=== PATIENT | female | born 1940 | race Caucasian/White ===

== ENCOUNTER 2019-06-01 09:14 | Inpatient (IN) | payer MEDICARE ==
--- NOTE | 2019-06-01 09:30 | CT ---
Exam: Head CT without contrast HISTORY: Left-sided weakness. Level 2 stroke. Last seen normal at 1:00 AM. COMPARISON: 08/27/2015 FINDINGS: Hemorrhage: No intraparenchymal hemorrhage or extra-axial hematoma. Brain parenchyma: Cortical portillo-white matter differentiation is preserved. No mass effect or midline shift. Basilar cisterns are patent.Remote lacunar infarcts involving the left and right deep portillo matter structures. There are chronic small vessel ischemic changes of the white matter. Age-appropria te atrophy. Ventricular system: Ventricles and sulci are patent and symmetric. Calvarium: Intact. Sinuses and mastoid air cells: Adequate aeration. IMPRESSION: 1. No acute intracranial process. 2. Results of study discussed with Dr. Bermudez 06/01/2019 9:27 AM Code CR
[2019-06-01 09:35] LABS: #Eosinphils 0.1 thou/uL (0.0-0.7); #Monocytes 0.6 thou/uL (0.11-0.59); #Neutrophils 5.7 thou/uL (1.40-6.50); %Basophils 0.6 % (0.0-1.0); %Eosinophils 1.5 % (0.0-10.0); %Monocytes 7.3 % (0.0-10.0); %Neutrophils 66.7 % (42.0-75.0); Hemoglobin 12.4 g/dL (12.0-16.0); Mean Corpuscular Hemoglobin 30.1 pg (27.0-31.0); Mean Corpuscular Volume 88.7 fL (78.0-98.0); Mean Platelet Volume 6.5 fL (7.4-10.4); Platelet Count 307 thou/uL (130-400); RBC Distribution Width 12.8 % (11.5-14.5); Red Blood Cell (RBC) Count 4.13 mill/uL (4.20-5.40); White Blood Cell (WBC) Count 8.5 thou/uL (4.8-10.8)
[2019-06-01] MEDS ORDERED: hydrALAZINE 20 MG/ML VIAL ONE (09:44)
[2019-06-01 09:50] LABS: ALT (SGPT) 8 U/L (8-55); AST (SGOT) 10 U/L (5-34); Albumin 3.3 g/dL (3.4-4.8); Alkaline Phosphatase 80 U/L (40-110); Anion Gap 12 mmol/L (10-20); BUN (Urea Nitrogen) 10 mg/dL (9.8-20.1); Bilirubin, Total 0.2 mg/dL (0.2-1.2); Calc. Creatinine Clearance 0 mL/min (70-130); Calcium 9.4 mg/dL (7.8-10.44); Carbon Dioxide 29 mmol/L (23-31); Chloride 104 mmol/L (98-107); Estimated GFR-MDRD 59; Globulin 3.4 g/dL (2.4-3.5); Glucose 97 mg/dL (83-110); Protein, Total 6.7 g/dL (6.0-8.3); Sodium 141 mmol/L (136-145)
--- NOTE | 2019-06-01 09:51 | CT ---
EXAM: CT ANGIOGRAM OF THE HEAD AND NECK: INDICATION: Stroke. COMPARISON: None. TECHNIQUE: CT angiogram of the head and neck are performed in the axial plane. Three-dimensional reformatted terence ges are submitted for interpretation. FINDINGS: CTA OF THE HEAD WITH AND WITHOUT CONTRAST: POSTCONTRAST CT OF BRAIN: Pathologic enhancement: No pathologic enhancement the brain. POSTCONTRAST SOFT TISSUE NECK CT: Sinuses: Adequate aeration of the visualized paranasal sinuses and mastoid air cells. Orbits: Bilateral ocular lenses are appropriately located. Both globes are intact. Retrobulbar fat is preserved. Symmetric attenuation the optic nerves and ocular rectus muscles. Salivary glands:Symmetric attenuation of the parotid and symmetrical glands . Thyroid gland: Appropriate attenuation. Lymph nodes: No evidence of lymphadenopathy by size criteria. Paraspinal muscles: Symmetric attenuation of the sternocleidomastoid muscles. Appropriate attenuation of the paraspinal muscles. Cervical spine:Vertebral body height is maintained. No fracture. No significant central canal stenosi s or significant neural foraminal narrowing. Limited evaluation by technique. Upper mediastinum and lung apices: Mild emphysematous changes in the visualized lung apices. Question able right hilar lymphadenopathy, incompletely evaluated. Additional nonspecific mediastinal lymph nodes are noted. CTA OF THE NECK WITH CONTRAST: Aorta: Atherosclerosis of a nonaneurysmal aorta. There is mild narrowing of the proximal descending t horacic aorta due to calcified and noncalcified plaque. Right carotid artery: Right carotid artery origin has mild narrowing due to noncalcified plaque. The common carotid artery and carotid bifurcation have mild narrowing due to atherosclerotic disease. No significant stenosis based upon NASCET criteria with regards to the internal carotid artery. Left carotid: Mild narrowing of the left carotid artery origin due to atherosclerotic disease. Mild n arrowing of the proximal left common carotid due to heart disease. There is calcified and noncalcified plaque involving the mid left common carotid artery. There is associated moderate (54%) stenosis. Atherosclerotic disease is noted in the distal common carotid artery, carotid bifurcation and internal carotid artery. There is a left carotid artery stent which is patent. The mid to distal left internal carotid artery have appropriate enhancement and luminal diameter. No significant stenosis based upon NASCET criteria. Subclavian arteries:Patent and symmetric. Vertebral arteries:Mild atherosclerosis at the origin of the left vertebral artery. Vertebral arterie s are patent throughout their course in the neck. Short segment moderate stenosis involving the right vertebral body at the C4-C5 level Left vertebral artery is slightly more dominant. CTA OF THE BRAIN: Intracranial internal carotid arteries:Atherosclerosis involving both cavernous sinus segments. No si gnificant stenosis. Anterior circulation: Symmetric enhancement and luminal diameter of the A1 and M1 segments. Proximal A2 segments and proximal MCA branches have appropriate enhancement and luminal diameter. Intracranial vertebral arteries: Appropriate enhancement and luminal diameter. Bilateral PICA artery origins have appropriate enhancement and luminal diameter. Posterior circulation: Both vertebral arteries supply a normal caliber basilar artery. Bilateral P1 s egments have appropriate enhancement and luminal diameter. IMPRESSION: 1. No evidence of significant stenosis at the level of [place]. 2. Patent right internal carotid artery vascular stent. 3. Moderate stenosis involving the left common carotid artery. 4. No evidence of hemodynamically significant stenosis involving the right cervical carotid artery. 5. Results of the study discussed with Dr. Bermudez 06/01/2019 at 9:50 AM. Code CR Transcribed Date/Time: 06/01/2019 10:05 AM
--- NOTE | 2019-06-01 10:21 | RAD ---
Exam: Chest one view HISTORY:Cough. Comparison: 09/23/2017, 03/28/2019 FINDINGS: Cardiac silhouette:Normal cardiac silhouette. There are sternotomy wires Aorta: Atherosclerosis Pulmonary vessels: Normal Costophrenic angles: Clear LUNGS: No masses or consolidation. Pneumothorax: None Osseous abnormalities: None IMPRESSION: 1. No acute cardiopulmonary process. 2. Atherosclerosis.
[2019-06-01] MEDS ORDERED: Aspirin Chewable 81 MG TAB ONE ×2 (10:30)
[2019-06-01 10:52] LABS: Bacteria/HPF None Seen HPF (None Seen); Bilirubin Negative (Negative); Blood, Urine Negative (Negative); Clarity Clear (Clear); Glucose, Urine (Dipstick) Normal (Negative); Leukocyte Negative Leu/uL (Negative); Nitrite Negative (Negative); Protein, Urine (Dipstick) 70 mg/dL (Neg-Trace); RBC/HPF 0-3 HPF (0-3); Urobilinogen Normal mg/dL (Less than 2)
--- NOTE | 2019-06-01 10:57 | PDOC.HHP ---
Hospitalist HPI - History of Present Illness Left sided weakness History of Present Illness: This a 78 year old woman with a significant cardiac history, 2 strokes in the past and a current daily smoker (1 pack/day) who presents to the ED with a left sided weakness and an NIH stroke scale of 10. Apparently last known well time was 0100. Patient recalls falling on her coffee table this morning after her legs gave way. I called her son and he reports seeing her with her elbows over the table and not able to move her left leg. Patient has significant motor deficits to her LLE and is unable to move against gravity. Her LUE is slightly weak but able to move. Son reports slurred speech this morning but but did not seem to have trouble with speech during my assessment. Patient was also on Augment from a recent UTI about 2-3 weeks ago. She does not seem to have an infectious process at this time. UA negative for a UTI and CXR with no evidence of a PNA. She has wheezing from her COPD with mild SOB. She denies palpitations, chest pain, or any other symptoms at this time She was brought to the ER via EMS and w/u included a CTH which was negative for an acute event. Hospitalist is now consulted for further work-up and management. we are unable to verify patient's medication history at this time. Spoke to son who said that the medication have been changed so much that he lost track. Will need to call her pharmacy to obtain a most accurate list ED Course: patient received ASA and not a candidate for TPA. admitted to stroke unit Hospitalist ROS - Review of Systems Constitutional: reports: weakness, malaise. denies: fever, chills Eyes: denies: pain, vision change, eyelid inflammation, redness ENT: denies: ear pain, nose pain, nose congestion, mouth swelling Respiratory: reports: cough, dry, shortness of breath, SOB with excertion, wheezing. denies: hemoptysis, pleuritic pain, sputum Cardiovascular: denies: chest pain, palpitations, orthopnea, paroxysmal noc. dyspnea Gastrointestinal: denies: nausea, vomiting, abdominal pain Genitourinary: denies: dysuria, frequency, incontinence, hematuria, retention Musculoskeletal: denies: neck pain, shoulder pain, back pain Skin: denies: rash, lesions Neurological: reports: weakness, incoordination. denies: numbness, confusion - Medication Medications: see MAR Hospitalist History - Past Medical History Cardiac: reports: CAD, HTN, MT, Hyperlipidemia Pulmonary: reports: CVA/TIA/stroke, COPD, high cholesterol [employer]: reports: CVA Gastrointestinal: denies: GI bleed Heme/Onc: denies: Cancer, Sickle cell disease Hepatobiliary: denies: Cirrhosis, Cholelithiasis Psych: denies: Anxiety Musculoskeletal: reports: no pertinent history Rheumatologic: reports: no pertinent history Infectious Disease: reports: no pertinent history Renal/: denies: Hematuria Endocrine: denies: Diabetes, Hypothyroidism, Hyperparathyroidism Dermatology: denies: Eczema, Cellulitis Other Medical History: right kidney malignancy, - Past Surgical History Past Surgical History: reports: Appendectomy Other Surgical History: Bowel resection, cardiac stets, bypass x4 vessels, right nephrectomy, - Family History Family History: reports: cardiac disorder, diabetes mellitus, hypertension - Social History Smoking Status: Current every day smoker Tobacco Type: cigarettes Drugs: reports: none Living Situation: With Family Domestic Violence: Negative Activity level: independent ambulation - Exam General Appearance: NAD, awake alert Eye: PERRL, anicteric sclera ENT: normocephalic atraumatic Neck: supple, symmetric, no JVD, no carotid bruit Heart: RRR, no murmur Respiratory: no rales, no ronchi, no tachypnea, wheezes Gastrointestinal: soft, non-tender, no palpable masses, no guarding Extremities: no cyanosis, no clubbing, no edema Skin: normal turgor Neurological: normal sensation to touch, hemiplegia Neurological - other findings: left sided weakness more significant in the LLE Musculoskeletal: generalized weakness Psychiatric: normal affect, normal behavior, A&O x 3 Hospitalist Results - Labs Result Diagrams: 06/01/19 09:18 06/01/19 09:18 Lab results: WBC 8.5 thou/uL (4.8-10.8) 06/01/19 09:18 Hgb 12.4 g/dL (12.0-16.0) 06/01/19 09:18 Hct 36.7 % (36.0-47.0) 06/01/19 09:18 MCV 88.7 fL (78.0-98.0) 06/01/19 09:18 Plt Count 307 thou/uL (130-400) 06/01/19 09:18 Neutrophils % 66.7 % (42.0-75.0) 06/01/19 09:18 Sodium 141 mmol/L (136-145) 06/01/19 09:18 Potassium 4.0 mmol/L (3.5-5.1) 06/01/19 09:18 Chloride 104 mmol/L (98-107) 06/01/19 09:18 Carbon Dioxide 29 mmol/L (23-31) 06/01/19 09:18 BUN 10 mg/dL (9.8-20.1) 06/01/19 09:18 Creatinine 0.93 mg/dL (0.6-1.1) 06/01/19 09:18 Glucose 97 mg/dL (83-110) 06/01/19 09:18 Calcium 9.4 mg/dL (7.8-10.44) 06/01/19 09:18 Total Bilirubin 0.2 mg/dL (0.2-1.2) 06/01/19 09:18 AST 10 U/L (5-34) 06/01/19 09:18 ALT 8 U/L (8-55) 06/01/19 09:18 Alkaline Phosphatase 80 U/L (40-110) 06/01/19 09:18 Troponin I 0.011 ng/mL (< 0.028) 06/01/19 09:18 Serum Total Protein 6.7 g/dL (6.0-8.3) 06/01/19 09:18 Albumin 3.3 g/dL (3.4-4.8) L 06/01/19 09:18 - EKG Interpretation EKG: Reviewed Hospitalist H&P A/P - Problem (1) Acute CVA (cerebrovascular accident) Code(s): I63.9 - CEREBRAL INFARCTION, UNSPECIFIED Status: Acute (2) COPD with exacerbation Code(s): J44.1 - CHRONIC OBSTRUCTIVE PULMONARY DISEASE W (ACUTE) EXACERBATION Status: Acute (3) Carotid artery disease Code(s): I77.9 - DISORDER OF ARTERIES AND ARTERIOLES, UNSPECIFIED Status: Acute (4) Tobacco abuse counseling Code(s): Z71.6 - TOBACCO ABUSE COUNSELING Status: Acute (5) COPD (chronic obstructive pulmonary disease) Status: Chronic (6) HLD (hyperlipidemia) Code(s): E78.5 - HYPERLIPIDEMIA, UNSPECIFIED Status: Chronic - Plan Plan: Suspected stroke Patient with significant stroke risks which included HTN, daily 1pack smoker, CAD, HLD. Hemiparesis present to the left side thought CTH negative for acute events Will obtain brain MRI ASA 325MG given in the ED Consult neurology HTN Hypertensive in the ER, Received a dose of Hydralazine Will resume home regimen and titrate accordingly to keep BP slightly elevated HLD Continue statins CAD Patient with a history of cardiac stents and bypass x4 vessels Continue anticoagulation, statins Tobacco use Patient reports daily 1 pack of cigarette smoking Will start Nicotine patch PPI Proph Started on Famotidine DVT Proph Lovenox Dispo Admitted to the stroke unit with an anticipated stay of about 2-3 days
--- NOTE | 2019-06-01 12:24 | MRI ---
MRI brain without and with gadolinium contrast HISTORY: Left-sided weakness. CVA. FINDINGS: There is an irregular 1.5 cm focus of restricted diffusion within the right posterior front al periventricular white matter, extending into the posterior limb of the right internal capsule. Associated defect on ADC mapping image. Another tiny focus of restricted diffusion involves the internal cortex of the right occipital lobe. No mass effect, shift of midline structures, or abnormal areas of contrast enhancement. Prominent chr onic ischemic small vessel changes throughout the periventricular white matter of each cerebral hemisphere. Old lacunar infarct right basal ganglia. Diffuse cortical atrophy. IMPRESSION: Small focus of acute infarct involving the right frontal deep white matter, accounting fo r acute onset left leg weakness. A second tiny infarct involving the right occipital lobe. It could affect left sided vision.
[2019-06-01 12:51] VITALS: BMI 22.7
[2019-06-01] MEDS ORDERED: Calcium Carbonate 500 MG ChewTAB PO PRN (13:04)
[2019-06-01] MEDS ORDERED: Magnevist 469MG/ML 20 ML VIAL ONE (13:52)
[2019-06-01] MEDS ORDERED: Clopidogrel Bisulfate 75 MG TAB PO SCH (14:00)
[2019-06-01] MEDS ORDERED: Enoxaparin Sodium 40 MG/0.4 ML SYRINGE SC SCH (14:00)
[2019-06-01] MEDS ORDERED: Famotidine 20 MG TAB PO SCH ×2 (14:00→21:00)
[2019-06-01] MEDS ORDERED: Losartan 25 MG TAB PO SCH (14:00)
--- NOTE | 2019-06-01 14:28 | PDOC.EVN ---
Event Note - Event Note Event Note: Patient seen and examined. She has hx of prior CVA. She say she cannot move her left foot and left arm is not working well. Exam confirms such. MRI has been read and she does have acute CVA. Has been a while since her last stroke workup. Will keep her on tele. Obtain echo. CTA was negative for stenosis ( Hx of right CEA). She was out of her aspirin for a few days, so cannot call it a treatment failure. Continue ASA/Plavix, statin. Stroke team consult.
--- NOTE | 2019-06-01 15:24 | CON ---
DATE OF CONSULTATION: 06/01/2019 CONSULTING PHYSICIAN: Hospitalist Service. IMPRESSION: 1. Lacunar stroke with left hemiparesis. 2. Tobacco use. 3. Past history of prior stroke without residual deficits. PLAN: 1. Restart aspirin and a statin. 2. Echocardiogram. 3. Rehab screening. HISTORY OF PRESENT ILLNESS: Ms. Sanchez is a 78-year-old woman, who came in with complaints of acute onset of left-sided weakness. Initial CT scan of the brain did not show any evidence of bleed. Her CT angiogram showed stent in the right carotid and some moderate stenosis on the left. Her MRI revealed a lacunar infarction in the right frontal lobe as well as small area in the left occipital lobe. She has no complaint of headache, nausea, vomiting, dizziness or loss of vision. She has not seen any improvement in her symptoms since admission. PAST MEDICAL HISTORY: Stroke, carotid disease. ALLERGIES: LATEX, CODEINE, AND TRAMADOL. SOCIAL HISTORY: Positive for tobacco. FAMILY HISTORY: Noncontributory. REVIEW OF SYSTEMS: 10-system review of systems is otherwise negative. PHYSICAL EXAMINATION: VITAL SIGNS: Blood pressure 177/84, pulse 108, respirations 21, and temperature 98.4. HEENT: Pupils equal and reactive. Conjunctivae clear. Oropharynx clear. Cranium, normocephalic and atraumatic. NECK: Supple. EXTREMITIES: No cyanosis or edema. NEUROLOGIC: She is alert and cooperative. Her speech is fluent and clear. She follows commands appropriately. There is no facial asymmetry. She has severe weakness in the left arm and leg with very little movement. Sensation was subjectively decreased as well. Gait was not testable. No abnormal movements were seen. DIAGNOSTIC DATA: EKG shows normal sinus rhythm. SUMMARY: Unfortunate elderly lady with a small stroke, resulting in fairly significant weakness on the left side. She was not compliant with a stroke prevention plan. Restart aspirin and Lipitor. Her echocardiogram is pending. She will likely need transfer to rehab given the severity of her deficits. Job ID: [id number]
[2019-06-01] MEDS: Sodium Chloride 0.9% 1,000 ML IV SCH (15:25)
[2019-06-01] MEDS: Nicotine 21 MG PATCH TD SCH (15:25)
[2019-06-01] MEDS: Atorvastatin Calcium 40 MG TAB PO SCH (20:41)
[2019-06-01] MEDS ORDERED: diphenhydrAMINE 25 MG CAP PO SCH (23:15)
[2019-06-02] MEDS ORDERED: Labetalol HCl 100 MG/20 ML VIAL SLOW IVP PRN (01:18)
[2019-06-02] MEDS ORDERED: hydrALAZINE 20 MG/ML VIAL SLOW IVP PRN (01:18)
--- NOTE | 2019-06-02 01:22 | PDOC.EVN ---
Event Note - Event Note Event Note: RN called due to SBP >220. Will add PRN HTN meds per stroke protocol Add Echo per Neuro recs.
[2019-06-02] MEDS: Sodium Chloride 0.9% 1,000 ML IV SCH (02:26)
[2019-06-02 04:48] LABS: #Eosinphils 0.1 thou/uL (0.0-0.7); #Lymphocytes 2.3 thou/uL (1.20-3.40); #Monocytes 0.5 thou/uL (0.11-0.59); #Neutrophils 4.3 thou/uL (1.40-6.50); %Basophils 0.5 % (0.0-1.0); %Eosinophils 1.7 % (0.0-10.0); %Lymphocytes 31.7 % (21.0-51.0); %Monocytes 6.8 % (0.0-10.0); %Neutrophils 59.2 % (42.0-75.0); Hemoglobin 12.3 g/dL (12.0-16.0); Mean Corpuscular HGB CONC 33.8 g/dL (32.0-36.0); Mean Corpuscular Hemoglobin 29.5 pg (27.0-31.0); Mean Corpuscular Volume 87.5 fL (78.0-98.0); Mean Platelet Volume 6.4 fL (7.4-10.4); Platelet Count 312 thou/uL (130-400); Red Blood Cell (RBC) Count 4.15 mill/uL (4.20-5.40); White Blood Cell (WBC) Count 7.3 thou/uL (4.8-10.8)
[2019-06-02 05:22] LABS: Anion Gap 13 mmol/L (10-20); BUN (Urea Nitrogen) 9 mg/dL (9.8-20.1); Calc. Creatinine Clearance 51 mL/min (70-130); Calcium 8.9 mg/dL (7.8-10.44); Carbon Dioxide 24 mmol/L (23-31); Cardiac Risk 5.1 (Less than 4.5); Chloride 106 mmol/L (98-107); Cholesterol 197 mg/dl (< 200 Desired); Estimated GFR-MDRD 71; Glucose 90 mg/dL (83-110); HDL Cholesterol 39 mg/dL (>60 Neg Risk); LDL Cholesterol, Calculated 127 mg/dL; Potassium 3.4 mmol/L (3.5-5.1); Sodium 140 mmol/L (136-145); Triglycerides 156 mg/dL (Less than 150)
[2019-06-02] MEDS ORDERED: Potassium Chloride 20 MEQ TAB PO SCH (07:30)
[2019-06-02] MEDS ORDERED: Losartan 25 MG TAB PO SCH (09:00)
[2019-06-02] MEDS ORDERED: FLU VACC TS2019-20(65YR UP)/PF 180 MCG/0.5 ML SYRINGE IM ONE (09:00)
[2019-06-02] MEDS: Losartan 25 MG TAB PO SCH (10:27)
[2019-06-02] MEDS: Enoxaparin Sodium 40 MG/0.4 ML SYRINGE SC SCH (10:27)
[2019-06-02] MEDS: Aspirin 81 mg Enteric Coated Tablet PO SCH (10:27)
[2019-06-02] MEDS: Clopidogrel Bisulfate 75 MG TAB PO SCH (10:28)
--- NOTE | 2019-06-02 13:12 | PDOC.HOSPP ---
- Subjective Subjective: Follow-up evaluation on Ms. Sanchez with acute CVA. Patient presented with fall on the coffee table secondary to weakness in the left leg and left hand, with possible slurred speech. Patient also on Augmentin for urinary tract infection. Patient is not taking aspirin/statin for CVA prevention prior to admission because she ran out of her medications. Patient with past medical history of CVA. Patient with MRI with positive right frontal CVA. PT has evaluated the patient recommended them rehab appropriate on discharge. When I discuss with her about rehab, she states she would like to think about it a little longer. Patient with improvement in speech and Case management has been consulted for discharge planning. Will replace the patient's potassium. Echocardiogram pending. - Objective Vital Signs & Weight: Vital Signs (12 hours) Temp Pulse Pulse Pulse Pulse Resp BP 06/02/19 11:10 97.5 F L 95 22 H 06/02/19 09:37 94 87 92 135/90 06/02/19 08:29 79 79 205/86 H 06/02/19 07:18 97.9 F 77 19 06/02/19 03:20 98.1 F 83 18 06/02/19 01:41 BP BP BP Pulse Ox 06/02/19 11:10 158/72 H 91 L 06/02/19 09:37 188/84 H 160/76 H 06/02/19 08:29 168/75 H 06/02/19 07:18 189/83 H 92 L 06/02/19 03:20 202/85 H 95 06/02/19 01:41 212/87 H Weight Admit Weight 116 lb 8 oz Weight 116 lb 8 oz I&O: 06/01/19 06/02/19 06/03/19 06:59 06:59 06:59 Intake Total 463 520 Output Total 800 Balance -337 520 Result Diagrams: 06/02/19 04:37 06/02/19 04:37 Radiology Reviewed by me: Yes Hospitalist ROS - Review of Systems All other systems reviewed; all pertinent +/- noted in HPI/Subj - Medication Medications: Active Medications Generic Name Dose Route Start Last Admin Trade Name Freq PRN Reason Stop Dose Admin Aspirin 81 mg 06/02/19 09:00 06/02/19 10:27 Ecotrin PO 81 mg DAILY STEFANO Administration Atorvastatin Calcium 40 mg 06/01/19 21:00 06/01/19 20:41 Lipitor PO 40 mg HS STEFANO Administration Clopidogrel Bisulfate 75 mg 06/02/19 09:00 06/02/19 10:28 Plavix PO 75 mg DAILY STEFANO Administration Enoxaparin Sodium 40 mg 06/02/19 09:00 06/02/19 10:27 Lovenox SC 40 mg 0900 STEFANO Administration Losartan Potassium 100 mg 06/02/19 09:00 06/02/19 10:27 Cozaar PO 100 mg DAILY STEFANO Administration Nicotine 21 mg 06/01/19 10:45 06/01/19 15:25 Nicoderm Patch TD 21 mg Q24HR STEFANO Administration Sodium Chloride 10 ml 06/01/19 10:44 06/02/19 10:27 Flush - Normal Saline IVF 10 ml Q12HR PRN Administration Saline Flush - Exam General Appearance: NAD, awake alert Eye: anicteric sclera ENT: normocephalic atraumatic, moist mucosa Neck: supple, symmetric, no lymphadenopathy Heart: no murmur, no gallops, no rubs Respiratory: no rales, no ronchi, normal chest expansion, no tachypnea, wheezes Gastrointestinal: soft, non-tender, no guarding, no rigidity Extremities: 1+ LE edema Skin: no rashes Neurological: cranial nerve grossly intact Neurological - other findings: left weakness lower greater than upper Musculoskeletal: generalized weakness Psychiatric: A&O x 3 Hosp A/P (1) Acute CVA (cerebrovascular accident) Code(s): I63.9 - CEREBRAL INFARCTION, UNSPECIFIED Status: Acute (2) Carotid artery disease Code(s): I77.9 - DISORDER OF ARTERIES AND ARTERIOLES, UNSPECIFIED Status: Acute (3) Tobacco abuse counseling Code(s): Z71.6 - TOBACCO ABUSE COUNSELING Status: Acute (4) COPD (chronic obstructive pulmonary disease) Status: Chronic (5) HLD (hyperlipidemia) Code(s): E78.5 - HYPERLIPIDEMIA, UNSPECIFIED Status: Chronic (6) HTN (hypertension) Code(s): I10 - ESSENTIAL (PRIMARY) HYPERTENSION Status: Chronic (7) Tobacco abuse Code(s): Z72.0 - TOBACCO USE Status: Chronic - Plan Plan: medical unit with telemetry/stroke unit neurology consultation, recommendations appreciated physical therapy evaluation and treatment Occupational Therapy evaluation and treatment MRI brain positive for acute CVA echocardiogram pending CT angiography of the head and neck noted patient will benefit from rehabilitation facility placement, she states she would like more time to think about this and is reluctant restart stroke regimen: antiplatelet, statin, VIANEY inhibitor /ARB continue other home medications as able Adjust blood pressure medications for control blood sugar control G.I. prophylaxis DVT prophylaxis
[2019-06-02] MEDS: Nicotine 21 MG PATCH TD SCH (14:12)
[2019-06-02] MEDS: Atorvastatin Calcium 40 MG TAB PO SCH (21:43)
[2019-06-02] MEDS: Famotidine 20 MG TAB PO SCH (21:43)
[2019-06-03] MEDS: Enoxaparin Sodium 40 MG/0.4 ML SYRINGE SC SCH (09:12)
[2019-06-03] MEDS: Losartan 25 MG TAB PO SCH (09:12)
[2019-06-03] MEDS: Clopidogrel Bisulfate 75 MG TAB PO SCH (09:13)
[2019-06-03] MEDS: Aspirin 81 mg Enteric Coated Tablet PO SCH (09:13)
[2019-06-03] MEDS: Potassium Chloride 20 MEQ TAB PO SCH ×2 (09:13→12:55)
[2019-06-03] MEDS: Nicotine 21 MG PATCH TD SCH (09:13)
[2019-06-03] MEDS: Isosorbide Mononitrate (ER) 30 MG TAB PO SCH ×2 (09:13→12:14)
--- NOTE | 2019-06-03 15:39 | PDOC.HOSPP ---
- Subjective Encounter Date: 06/03/19 Encounter Time: 08:00 Subjective: no overnight events. This morning, endorses improvement in left sided strength and eating breakfast. Complains of malaise, no other complaints. - Objective Vital Signs & Weight: Vital Signs (12 hours) Temp Pulse Pulse Pulse Resp BP BP 06/03/19 15:17 97.4 F L 92 18 06/03/19 11:27 97.9 F 100 16 06/03/19 10:47 108 H 98 134/62 132/64 06/03/19 07:25 97.9 F 61 20 BP Pulse Ox 06/03/19 15:17 123/57 L 93 L 06/03/19 11:27 134/62 94 L 06/03/19 10:47 06/03/19 07:25 131/62 95 Weight Admit Weight 116 lb 8 oz Weight 116 lb 8 oz I&O: 06/02/19 06/03/19 06/04/19 06:59 06:59 06:59 Intake Total 463 867 840 Output Total 800 Balance -337 867 840 Result Diagrams: 06/02/19 04:37 06/02/19 04:37 Hospitalist ROS - Review of Systems Constitutional: denies: fever, chills, sweats, weakness, malaise, other Respiratory: denies: cough, dry, shortness of breath, hemoptysis, SOB with excertion, pleuritic pain, sputum, wheezing, other Cardiovascular: denies: chest pain, palpitations, orthopnea, paroxysmal noc. dyspnea, edema, light headedness, other Gastrointestinal: denies: nausea, vomiting, abdominal pain, diarrhea, constipation, melena, hematochezia, other Genitourinary: denies: dysuria, frequency, incontinence, hematuria, retention, other Neurological: reports: weakness, incoordination. denies: numbness, change in speech, confusion, seizures - Medication Medications: Active Medications Generic Name Dose Route Start Last Admin Trade Name Freq PRN Reason Stop Dose Admin Albuterol/Ipratropium 3 ml 06/02/19 21:51 06/02/19 22:11 Duoneb NEB 3 ml [id number] PRN Administration SOB &/or Wheezing Aspirin 81 mg 06/02/19 09:00 06/03/19 09:13 Ecotrin PO 81 mg DAILY STEFANO Administration Atorvastatin Calcium 40 mg 06/01/19 21:00 06/02/19 21:43 Lipitor PO 40 mg HS STEFANO Administration Clopidogrel Bisulfate 75 mg 06/02/19 09:00 06/03/19 09:13 Plavix PO 75 mg DAILY STEFANO Administration Enoxaparin Sodium 40 mg 06/02/19 09:00 06/03/19 09:12 Lovenox SC 40 mg 0900 STEFANO Administration Famotidine 20 mg 06/02/19 21:00 06/02/19 21:43 Pepcid PO 20 mg 2100 STEFANO Administration Isosorbide Mononitrate 60 mg 06/02/19 09:00 06/03/19 09:13 Imdur PO 60 mg DAILY STEFANO Administration Losartan Potassium 100 mg 06/02/19 09:00 06/03/19 09:12 Cozaar PO 100 mg DAILY STEFANO Administration Nicotine 21 mg 06/01/19 10:45 06/03/19 09:13 Nicoderm Patch TD 21 mg Q24HR STEFANO Administration Sodium Chloride 10 ml 06/01/19 10:44 06/02/19 10:27 Flush - Normal Saline IVF 10 ml Q12HR PRN Administration Saline Flush - Exam General Appearance: NAD, awake alert Neck: no JVD Heart: RRR, no murmur, no gallops, no rubs Respiratory: CTAB, no wheezes, no rales, no ronchi Gastrointestinal: soft, non-tender Extremities: no edema Musculoskeletal: normal tone Musculoskeletal - other findings: right sided upper and lower 5/5; left sided upper and lower 4/5 Psychiatric: normal affect, normal behavior, A&O x 3 Hosp A/P - Plan #right frontal CVA -left sided strength improving -continue aspirin and plavix, -patient agreeble to rehab; update CM #HTN -continue losartan, imdur; goal BP < 140/90\ Disposition/PPx DVT PPx: enoxeparin GI PPx: pepcid Full code
[2019-06-03] MEDS: Famotidine 20 MG TAB PO SCH (22:19)
[2019-06-03] MEDS: Atorvastatin Calcium 40 MG TAB PO SCH (22:19)
[2019-06-03 23:54] LABS: Bacteria/HPF None Seen HPF (None Seen); Bilirubin Negative (Negative); Blood, Urine Negative (Negative); Clarity Clear (Clear); Glucose, Urine (Dipstick) Normal (Negative); Leukocyte Negative Leu/uL (Negative); Nitrite Negative (Negative); Protein, Urine (Dipstick) 70 mg/dL (Neg-Trace); RBC/HPF 0-3 HPF (0-3); Squamous Epithelial 0-3 HPF (0-3); Urobilinogen Normal mg/dL (Less than 2); WBC/HPF 0-3 HPF (0-3)
[2019-06-03 23:58] LABS: Urine Culture Reflex No No
[2019-06-04 04:55] LABS: Potassium 4.7 mmol/L (3.5-5.1)
[2019-06-04] MEDS: Nicotine 21 MG PATCH TD SCH (09:49)
[2019-06-04] MEDS: Aspirin 81 mg Enteric Coated Tablet PO SCH (09:49)
[2019-06-04] MEDS: Losartan 25 MG TAB PO SCH (09:49)
[2019-06-04] MEDS: Clopidogrel Bisulfate 75 MG TAB PO SCH (09:49)
[2019-06-04] MEDS: Enoxaparin Sodium 40 MG/0.4 ML SYRINGE SC SCH (09:49)
[2019-06-04] MEDS ORDERED: Sodium Chloride 0.9% 500 ML IV SCH (10:45)
[2019-06-04] MEDS ORDERED: Amlodipine 10 MG TAB PO SCH (10:45)
--- NOTE | 2019-06-04 10:54 | PDOC.HOSPP ---
- Subjective Encounter Date: 06/04/19 Encounter Time: 09:00 Subjective: overnight, sat off side of bed and fell forward. No significant trauma or hitting of head. This morning, has no complaints. however, during ambulation with PT complained about lightheadedness. Orthostats taken and positive - Objective Vital Signs & Weight: Vital Signs (12 hours) Temp Pulse Resp BP BP BP BP 06/04/19 09:19 162/70 H 183/68 H 185/79 H 06/04/19 07:35 98.2 F 66 16 145/65 H 06/04/19 04:00 98 F 69 18 137/62 06/04/19 00:00 98 F 80 16 171/79 H Pulse Ox 06/04/19 09:19 06/04/19 07:35 93 L 06/04/19 04:00 95 06/04/19 00:00 96 Weight Admit Weight 116 lb 8 oz Weight 116 lb 8 oz I&O: 06/03/19 06/04/19 06/05/19 06:59 06:59 06:59 Intake Total 867 1080 Output Total 75 Balance 867 1080 -75 Result Diagrams: 06/02/19 04:37 06/04/19 04:14 Hospitalist ROS - Review of Systems Constitutional: denies: fever, chills, sweats, weakness, malaise, other Respiratory: denies: cough, dry, shortness of breath, hemoptysis, SOB with excertion, pleuritic pain, sputum, wheezing, other Cardiovascular: denies: chest pain, palpitations, orthopnea, paroxysmal noc. dyspnea, edema, light headedness, other Gastrointestinal: denies: nausea, vomiting, abdominal pain, diarrhea, constipation, melena, hematochezia, other Genitourinary: denies: dysuria, frequency, incontinence, hematuria, retention, other Neurological: reports: weakness (left sided, stable) - Medication Medications: Active Medications Generic Name Dose Route Start Last Admin Trade Name Freq PRN Reason Stop Dose Admin Albuterol/Ipratropium 3 ml 06/02/19 21:51 06/03/19 22:27 Duoneb NEB 3 ml [id number] PRN Administration SOB &/or Wheezing Aspirin 81 mg 06/02/19 09:00 06/04/19 09:49 Ecotrin PO 81 mg DAILY STEFANO Administration Atorvastatin Calcium 40 mg 06/01/19 21:00 06/03/19 22:19 Lipitor PO 40 mg HS STEFANO Administration Clopidogrel Bisulfate 75 mg 06/02/19 09:00 06/04/19 09:49 Plavix PO 75 mg DAILY STEFANO Administration Enoxaparin Sodium 40 mg 06/02/19 09:00 06/04/19 09:49 Lovenox SC 40 mg 0900 STEFANO Administration Famotidine 20 mg 06/02/19 21:00 06/03/19 22:19 Pepcid PO 20 mg 2100 STEFANO Administration Losartan Potassium 100 mg 06/02/19 09:00 06/04/19 09:49 Cozaar PO 100 mg DAILY STEFANO Administration Nicotine 21 mg 06/01/19 10:45 06/04/19 09:49 Nicoderm Patch TD 21 mg Q24HR STEFANO Administration Sodium Chloride 10 ml 06/01/19 10:44 06/02/19 10:27 Flush - Normal Saline IVF 10 ml Q12HR PRN Administration Saline Flush - Exam General Appearance: NAD, awake alert Eye: PERRL ENT: normocephalic atraumatic Neck: no JVD Heart: RRR, no murmur, no gallops, no rubs Respiratory: CTAB, no wheezes, no rales, no ronchi Gastrointestinal: soft, non-tender, non-distended, normal bowel sounds Extremities: no edema Musculoskeletal: normal tone, normal strength Psychiatric: normal affect, normal behavior, A&O x 3, oriented to person, oriented to place, oriented to time Hosp A/P - Plan #right frontal CVA -stable neurologic exam -pending rehab placement -continue aspirin and plavix, -patient agreeble to rehab; update CM #orthostatic hypotension -likely multifactorial - medications, aging, recent bedrest due to stroke -stopped imdur; started amlodipine, continue losartan for history of CABG #HTN -continue losartan, start amlodipine; stopped imdur due to orthostatic hypotension goal BP < 140/90 Disposition/PPx DVT PPx: enoxeparin GI PPx: pepcid Full code
[2019-06-04] MEDS: Famotidine 20 MG TAB PO SCH (20:38)
[2019-06-04] MEDS: Atorvastatin Calcium 40 MG TAB PO SCH (20:38)
[2019-06-04] MEDS ORDERED: diphenhydrAMINE 25 MG CAP PO PRN (21:15)
[2019-06-05 05:18] LABS: Anion Gap 16 mmol/L (10-20); BUN (Urea Nitrogen) 19 mg/dL (9.8-20.1); Calc. Creatinine Clearance 43 mL/min (70-130); Calcium 9.3 mg/dL (7.8-10.44); Carbon Dioxide 22 mmol/L (23-31); Chloride 105 mmol/L (98-107); Estimated GFR-MDRD 59; Glucose 90 mg/dL (83-110); Magnesium 1.7 mg/dL (1.6-2.6); Potassium 4.1 mmol/L (3.5-5.1); Sodium 139 mmol/L (136-145)
[2019-06-05] MEDS ORDERED: Amlodipine 10 MG TAB PO SCH (09:00)
[2019-06-05] MEDS ORDERED: Amlodipine 5 MG TAB PO SCH (09:00)
[2019-06-05] MEDS: Aspirin 81 mg Enteric Coated Tablet PO SCH (09:31)
[2019-06-05] MEDS: Enoxaparin Sodium 40 MG/0.4 ML SYRINGE SC SCH (09:31)
[2019-06-05] MEDS: Losartan 25 MG TAB PO SCH (09:31)
[2019-06-05] MEDS: Clopidogrel Bisulfate 75 MG TAB PO SCH (09:31)
[2019-06-05] MEDS: Nicotine 21 MG PATCH TD SCH (11:31)
[2019-06-05 11:46] VITALS: BP 149/67; TEMP 97.4
--- NOTE | 2019-06-06 10:21 | DIS ---
DATE OF ADMISSION: 06/01/2019 DATE OF DISCHARGE: 06/05/2019 HOSPITAL COURSE: Ms. Sanchez is a 78-year-old female with a medical history of CVA, who presented with left-sided weakness. She was diagnosed with a lacunar infarction in the right frontal lobe as well as small area in the left occipital lobe. PROBLEMS: 1. Right frontal lobe lacunar infarction and small infarction in the left occipital lobe. a. The initial CT of the head did not reveal evidence of CVA or bleed. b. CT angiogram showed a stent in the right carotid as well as moderate stenosis on the left. c. MRI of the head revealed a lacunar infarction in the right frontal lobe as well as small area in the left occipital lobe. d. The patient was not a candidate for tPA and was started on aspirin and Plavix. She was previously on these medications, however, was not adherent to secondary prevention of stroke medications. e. The patient's left-sided weakness nearly resolved by the time she was discharged and she was working with physical therapy. f. She was ambulating with minimal assistance and on physical exam, left-sided upper extremity and lower extremity strength was at least 4/5 throughout the left side. g. The patient was resumed on her aspirin and Plavix, and she was also started on high-intensity statin. 2. Orthostatic hypotension. a. Prior to discharge, the patient had a positive orthostatic blood pressure. b. The patient's antihypertensive medications were adjusted, Imdur was discontinued, and amlodipine was started. c. On the day of discharge, orthostatics were repeated and were negative. The patient ambulated and even though she had mild lightheadedness, it was much improved. MEDICATION LIST: New medication: Amlodipine 5 mg p.o. daily. Continued medications: 1. Plavix 75 mg. 2. Calcium carbonate 1000 mg p.r.n. heartburn or indigestion. 3. Losartan 50 mg daily. 4. Atorvastatin 40 mg daily. 5. Aspirin 81 mg daily. 6. Nitroglycerin 0.4 mg sublingual p.r.n. chest pain. Discontinued medications: Isosorbide mononitrate. On the day of discharge, the patient was hemodynamically stable and had no complaints. PHYSICAL EXAMINATION: GENERAL APPEARANCE: No apparent distress. Awake and alert. HEENT: Eye; PERRL. ENT; normocephalic and atraumatic. NECK: No JVD. HEART: Regular rate and rhythm. No murmur. No gallops. No rubs. RESPIRATORY: Clear to auscultation bilaterally. No wheezes. No rales. No rhonchi. GI: Soft, nontender, and nondistended. Normal bowel sounds. EXTREMITIES: No edema. MUSCULOSKELETAL: Left-sided 4/5 strength in both upper and lower extremities, much improved compared to presentation. Right-sided 5/5 throughout. PSYCHIATRIC: Normal affect. Normal behavior. Alert and oriented x3. Job ID: [id number]
== END 2019-06-05 15:20 | disposition swing bed (61) | DRG 65 ==
LOC: ERS 09:14 → 2SE 12:11
PROVIDERS: ADMIT Internal Medicine; ATTEND Internal Medicine
DX: I63.81 Other cerebral infarction due to occlusion or stenosis of small artery (principal); J44.1 Chronic obstructive pulmonary disease with (acute) exacerbation; G81.94 Hemiplegia, unspecified affecting left nondominant side; R29.710 NIHSS score 10; I25.10 Atherosclerotic heart disease of native coronary artery without angina pectoris; I10 Essential (primary) hypertension; E78.5 Hyperlipidemia, unspecified; F41.9 Anxiety disorder, unspecified; E03.9 Hypothyroidism, unspecified; F17.210 Nicotine dependence, cigarettes, uncomplicated; I95.2 Hypotension due to drugs; I77.9 Disorder of arteries and arterioles, unspecified; R40.2412 Glasgow coma scale score 13-15, at arrival to emergency department; I25.2 Old myocardial infarction; Z85.528 Personal history of other malignant neoplasm of kidney; Z90.49 Acquired absence of other specified parts of digestive tract; Z88.5 Allergy status to narcotic agent; Z91.040 Latex allergy status
CPT/HCPCS: 36415; 36416; 70450; 70496; 70498; 70553; 71045; 80048; 80053; 80061; 81001; 81003; 81015; 83735; 84132; 84484; 85025; 90471; 90662; 93005; 93306; 94640; 94760; 96374; A9579; G0008; J0360; J1650; J7620; Q0163

== ENCOUNTER 2020-06-10 23:04 | Inpatient (IN) | payer MEDICARE ==
[2020-06-11 03:11] VITALS: BMI 26.3
[2020-06-11] MEDS ORDERED: Ondansetron PF 4 MG/2 ML Vial IVP PRN (04:38)
[2020-06-11 05:23] LABS: Anion Gap 12 mmol/L (10-20); BUN (Urea Nitrogen) 24 mg/dL (9.8-20.1); Calc. Creatinine Clearance 35 mL/min (70-130); Calcium 8.8 mg/dL (7.8-10.44); Carbon Dioxide 27 mmol/L (23-31); Chloride 88 mmol/L (98-107); Glucose 97 mg/dL (83-110); Potassium 3.8 mmol/L (3.5-5.1); Sodium 123 mmol/L (136-145)
[2020-06-11] MEDS ORDERED: Sodium Chloride 0.9% 1,000 ML IV SCH ×2 (08:45→14:36)
[2020-06-11 08:52] LABS: Creatinine, Urine 26.96 mg/dL (47-110)
[2020-06-11 13:49] LABS: Anion Gap 11 mmol/L (10-20); BUN (Urea Nitrogen) 20 mg/dL (9.8-20.1); Calc. Creatinine Clearance 41 mL/min (70-130); Calcium 8.7 mg/dL (7.8-10.44); Carbon Dioxide 29 mmol/L (23-31); Chloride 93 mmol/L (98-107); Glucose 89 mg/dL (83-110); Potassium 3.6 mmol/L (3.5-5.1); Sodium 129 mmol/L (136-145)
[2020-06-11] MEDS: cefTRIAXone\\ROCEPHIN 1 GM in Sodium Chloride 0.9% 100 ML IVPB SCH (19:43)
[2020-06-12 05:20] LABS: #Basophils 0.1 thou/uL (0.0-0.2); #Lymphocytes 1.7 thou/uL (1.20-3.40); #Monocytes 0.7 thou/uL (0.11-0.59); #Neutrophils 5.9 thou/uL (1.40-6.50); %Basophils 0.7 % (0.0-1.0); %Eosinophils 0.4 % (0.0-10.0); %Lymphocytes 20.7 % (21.0-51.0); %Monocytes 8.3 % (0.0-10.0); %Neutrophils 69.9 % (42.0-75.0); Hemoglobin 11.2 g/dL (12.0-16.0); Mean Corpuscular HGB CONC 34.7 g/dL (32.0-36.0); Mean Corpuscular Hemoglobin 29.9 pg (27.0-31.0); Mean Corpuscular Volume 86.1 fL (78.0-98.0); Mean Platelet Volume 6.3 fL (7.4-10.4); Platelet Count 299 thou/uL (130-400); Red Blood Cell (RBC) Count 3.75 mill/uL (4.20-5.40); White Blood Cell (WBC) Count 8.4 thou/uL (4.8-10.8)
[2020-06-12 05:47] LABS: Anion Gap 12 mmol/L (10-20); BUN (Urea Nitrogen) 25 mg/dL (9.8-20.1); Calc. Creatinine Clearance 43 mL/min (70-130); Calcium 8.7 mg/dL (7.8-10.44); Carbon Dioxide 28 mmol/L (23-31); Chloride 99 mmol/L (98-107); Glucose 106 mg/dL (83-110); Potassium 3.8 mmol/L (3.5-5.1); Sodium 135 mmol/L (136-145)
[2020-06-12] MEDS ORDERED: Dextrose 5% in Water 1,000 ML IV SCH (07:15)
[2020-06-12 09:37] LABS: SARS-CoV-2 PCR by NAA Not Detected (NotDetected)
[2020-06-12] MEDS ORDERED: Nitroglycerin 0.4 MG TAB (25 Tab Bottle) SL PRN (12:24)
[2020-06-12] MEDS ORDERED: Ondansetron PF 4 MG/2 ML Vial IVP PRN (13:42)
[2020-06-12] MEDS ORDERED: Promethazine HCl 12.5 MG in Sodium Chloride 0.9% 50 ML IVPB PRN (13:42)
[2020-06-12] MEDS ORDERED: hydrALAZINE 20 MG/ML VIAL SLOW IVP PRN (13:42)
[2020-06-12] MEDS ORDERED: Labetalol HCl 100 MG/20 ML VIAL SLOW IVP PRN (13:42)
[2020-06-12 14:19] LABS: Anion Gap 14 mmol/L (10-20); BUN (Urea Nitrogen) 20 mg/dL (9.8-20.1); Calc. Creatinine Clearance 54 mL/min (70-130); Calcium 8.8 mg/dL (7.8-10.44); Carbon Dioxide 23 mmol/L (23-31); Chloride 98 mmol/L (98-107); Glucose 110 mg/dL (83-110); Potassium 3.4 mmol/L (3.5-5.1); Sodium 132 mmol/L (136-145)
[2020-06-12] MEDS: Acetaminophen 325 MG TAB PO PRN (19:49)
[2020-06-12] MEDS: Heparin 5,000 UNITS/ML VIAL SC SCH (19:50)
[2020-06-12] MEDS: Atorvastatin Calcium 40 MG TAB PO SCH (19:50)
[2020-06-12] MEDS: cefTRIAXone\\ROCEPHIN 1 GM in Sodium Chloride 0.9% 100 ML IVPB SCH (19:50)
[2020-06-13 05:14] LABS: #Basophils 0.1 thou/uL (0.0-0.2); #Eosinphils 0.2 thou/uL (0.0-0.7); #Lymphocytes 2.5 thou/uL (1.20-3.40); #Monocytes 0.6 thou/uL (0.11-0.59); #Neutrophils 6.7 thou/uL (1.40-6.50); %Basophils 0.9 % (0.0-1.0); %Eosinophils 2.1 % (0.0-10.0); %Lymphocytes 24.7 % (21.0-51.0); %Neutrophils 66.3 % (42.0-75.0); Hemoglobin 11.4 g/dL (12.0-16.0); Mean Corpuscular HGB CONC 32.8 g/dL (32.0-36.0); Mean Corpuscular Hemoglobin 28.4 pg (27.0-31.0); Mean Corpuscular Volume 86.4 fL (78.0-98.0); Mean Platelet Volume 6.5 fL (7.4-10.4); Platelet Count 261 thou/uL (130-400); RBC Distribution Width 13.2 % (11.5-14.5); Red Blood Cell (RBC) Count 4.01 mill/uL (4.20-5.40)
[2020-06-13 05:40] LABS: Anion Gap 18 mmol/L (10-20); BUN (Urea Nitrogen) 16 mg/dL (9.8-20.1); Calc. Creatinine Clearance 54 mL/min (70-130); Calcium 9.2 mg/dL (7.8-10.44); Carbon Dioxide 21 mmol/L (23-31); Chloride 95 mmol/L (98-107); Glucose 99 mg/dL (83-110); Potassium 3.7 mmol/L (3.5-5.1); Sodium 130 mmol/L (136-145)
[2020-06-13] MEDS: Amlodipine 10 MG TAB PO SCH (08:07)
[2020-06-13] MEDS: Clopidogrel Bisulfate 75 MG TAB PO SCH (08:08)
[2020-06-13] MEDS: Heparin 5,000 UNITS/ML VIAL SC SCH ×2 (08:14→20:35)
[2020-06-13] MEDS ORDERED: Losartan/Hydrochlorothiazide 100 mg/25 mg Tablet PO SCH (09:00)
[2020-06-13] MEDS: Atorvastatin Calcium 40 MG TAB PO SCH (20:35)
[2020-06-13] MEDS: cefTRIAXone\\ROCEPHIN 1 GM in Sodium Chloride 0.9% 100 ML IVPB SCH (21:00)
[2020-06-14 05:14] LABS: #Eosinphils 0.3 thou/uL (0.0-0.7); #Lymphocytes 2.9 thou/uL (1.20-3.40); #Monocytes 0.6 thou/uL (0.11-0.59); #Neutrophils 5.6 thou/uL (1.40-6.50); %Basophils 0.4 % (0.0-1.0); %Eosinophils 3.2 % (0.0-10.0); %Lymphocytes 30.3 % (21.0-51.0); %Monocytes 6.4 % (0.0-10.0); %Neutrophils 59.7 % (42.0-75.0); Hemoglobin 10.3 g/dL (12.0-16.0); Mean Corpuscular HGB CONC 33.7 g/dL (32.0-36.0); Mean Corpuscular Hemoglobin 29.1 pg (27.0-31.0); Mean Corpuscular Volume 86.5 fL (78.0-98.0); Mean Platelet Volume 6.1 fL (7.4-10.4); Platelet Count 312 thou/uL (130-400); Red Blood Cell (RBC) Count 3.54 mill/uL (4.20-5.40); White Blood Cell (WBC) Count 9.4 thou/uL (4.8-10.8)
[2020-06-14 05:36] LABS: Anion Gap 14 mmol/L (10-20); BUN (Urea Nitrogen) 22 mg/dL (9.8-20.1); Calc. Creatinine Clearance 43 mL/min (70-130); Calcium 9.1 mg/dL (7.8-10.44); Carbon Dioxide 27 mmol/L (23-31); Chloride 96 mmol/L (98-107); Glucose 89 mg/dL (83-110); Sodium 133 mmol/L (136-145)
[2020-06-14] MEDS: Clopidogrel Bisulfate 75 MG TAB PO SCH (08:13)
[2020-06-14] MEDS: Amlodipine 10 MG TAB PO SCH (08:13)
[2020-06-14] MEDS: Heparin 5,000 UNITS/ML VIAL SC SCH ×2 (08:13→21:28)
[2020-06-14] MEDS: cefTRIAXone\\ROCEPHIN 1 GM in Sodium Chloride 0.9% 100 ML IVPB SCH (21:28)
[2020-06-14] MEDS: Atorvastatin Calcium 40 MG TAB PO SCH (21:28)
[2020-06-15 04:53] LABS: #Basophils 0.1 thou/uL (0.0-0.2); #Eosinphils 0.4 thou/uL (0.0-0.7); #Lymphocytes 2.5 thou/uL (1.20-3.40); #Monocytes 0.6 thou/uL (0.11-0.59); #Neutrophils 5.8 thou/uL (1.40-6.50); %Basophils 0.7 % (0.0-1.0); %Eosinophils 3.9 % (0.0-10.0); %Lymphocytes 26.5 % (21.0-51.0); %Monocytes 6.7 % (0.0-10.0); %Neutrophils 62.2 % (42.0-75.0); Hemoglobin 10.4 g/dL (12.0-16.0); Mean Corpuscular HGB CONC 34.1 g/dL (32.0-36.0); Mean Corpuscular Hemoglobin 29.4 pg (27.0-31.0); Mean Corpuscular Volume 86.3 fL (78.0-98.0); Mean Platelet Volume 6.1 fL (7.4-10.4); Platelet Count 310 thou/uL (130-400); RBC Distribution Width 12.9 % (11.5-14.5); Red Blood Cell (RBC) Count 3.53 mill/uL (4.20-5.40); White Blood Cell (WBC) Count 9.4 thou/uL (4.8-10.8)
[2020-06-15 05:14] LABS: Anion Gap 14 mmol/L (10-20); BUN (Urea Nitrogen) 22 mg/dL (9.8-20.1); Calc. Creatinine Clearance 52 mL/min (70-130); Carbon Dioxide 25 mmol/L (23-31); Chloride 100 mmol/L (98-107); Glucose 90 mg/dL (83-110); Sodium 135 mmol/L (136-145)
[2020-06-15] MEDS: Clopidogrel Bisulfate 75 MG TAB PO SCH (08:46)
[2020-06-15] MEDS: Heparin 5,000 UNITS/ML VIAL SC SCH ×2 (08:47→21:23)
[2020-06-15] MEDS: Amlodipine 10 MG TAB PO SCH (08:47)
[2020-06-15] MEDS: cefTRIAXone\\ROCEPHIN 1 GM in Sodium Chloride 0.9% 100 ML IVPB SCH (21:21)
[2020-06-15] MEDS: Atorvastatin Calcium 40 MG TAB PO SCH (21:21)
[2020-06-16 04:55] LABS: Mean Corpuscular HGB CONC 32.8 g/dL (32.0-36.0); Mean Corpuscular Hemoglobin 28.8 pg (27.0-31.0); Mean Corpuscular Volume 87.6 fL (78.0-98.0); Platelet Count 313 thou/uL (130-400); Red Blood Cell (RBC) Count 3.83 mill/uL (4.20-5.40); White Blood Cell (WBC) Count 9.5 thou/uL (4.8-10.8)
[2020-06-16 06:12] LABS: Ferritin 22.83 ng/mL (10-291); Thyroid Stimulating Hormone 1.5194 uIU/mL (0.35-4.94)
[2020-06-16 08:21] LABS: Anion Gap 13 mmol/L (10-20); BUN (Urea Nitrogen) 28 mg/dL (9.8-20.1); Calc. Creatinine Clearance 49 mL/min (70-130); Calcium 9.1 mg/dL (7.8-10.44); Carbon Dioxide 23 mmol/L (23-31); Chloride 103 mmol/L (98-107); Glucose 88 mg/dL (83-110); Potassium 4.4 mmol/L (3.5-5.1); Sodium 135 mmol/L (136-145)
[2020-06-16] MEDS ORDERED: Folic Acid 1 MG TAB PO SCH (09:45)
[2020-06-16] MEDS: Losartan 25 MG TAB PO SCH (10:11)
[2020-06-16] MEDS: Heparin 5,000 UNITS/ML VIAL SC SCH ×2 (10:12→21:29)
[2020-06-16] MEDS: Clopidogrel Bisulfate 75 MG TAB PO SCH (10:12)
[2020-06-16] MEDS: Amlodipine 10 MG TAB PO SCH (10:12)
[2020-06-16] MEDS: cefTRIAXone\\ROCEPHIN 1 GM in Sodium Chloride 0.9% 100 ML IVPB SCH (21:28)
[2020-06-16] MEDS: Atorvastatin Calcium 40 MG TAB PO SCH (21:28)
[2020-06-17 08:44] LABS: Anion Gap 13 mmol/L (10-20); BUN (Urea Nitrogen) 28 mg/dL (9.8-20.1); Calc. Creatinine Clearance 46 mL/min (70-130); Calcium 9.3 mg/dL (7.8-10.44); Carbon Dioxide 23 mmol/L (23-31); Chloride 104 mmol/L (98-107); Glucose 86 mg/dL (83-110); Potassium 4.2 mmol/L (3.5-5.1); Sodium 136 mmol/L (136-145)
[2020-06-17] MEDS: Folic Acid 1 MG TAB PO SCH (10:01)
[2020-06-17] MEDS: Heparin 5,000 UNITS/ML VIAL SC SCH ×2 (10:02→19:56)
[2020-06-17] MEDS: Clopidogrel Bisulfate 75 MG TAB PO SCH (10:02)
[2020-06-17] MEDS: Losartan 25 MG TAB PO SCH (10:02)
[2020-06-17] MEDS: Amlodipine 10 MG TAB PO SCH (10:02)
[2020-06-17] MEDS ORDERED: Albuterol Sulfate 2.5 mg/3 ml Neb EZPAP PRN (14:42)
[2020-06-17] MEDS ORDERED: predniSONE 20 MG TAB PO SCH (14:45)
[2020-06-17] MEDS ORDERED: Cefdinir 300 MG CAP PO SCH (15:00)
[2020-06-17 17:29] LABS: Actual Bicarbonate (HCO3v) 20 mEq/L (22-28); Base Excess -3.1 mEq/L (-2.0 to +3.0); Calcium, Ionized (venous) 1.16 mmol/L (1.16-1.32); Chloride (VBG) 103 mmol/L (98-106); Hemoglobin (Hb) 12.1 g/dL (11.7-16.1); Potassium (VBG) 4.99 mmol/L (3.70-5.30); Sodium 135.6 mmol/L (133-146); pH (venous) 7.43 (7.32-7.43)
[2020-06-17] MEDS: Acetaminophen 325 MG TAB PO PRN (17:43)
[2020-06-17] MEDS: Atorvastatin Calcium 40 MG TAB PO SCH (19:56)
[2020-06-17] MEDS: Cefdinir 300 MG CAP PO SCH (19:56)
[2020-06-18] MEDS ORDERED: predniSONE 20 MG TAB PO SCH (08:00)
[2020-06-18] MEDS: Cefdinir 300 MG CAP PO SCH (09:44)
[2020-06-18] MEDS: Amlodipine 10 MG TAB PO SCH (09:44)
[2020-06-18] MEDS: Clopidogrel Bisulfate 75 MG TAB PO SCH (09:44)
[2020-06-18] MEDS: Losartan 25 MG TAB PO SCH (09:45)
[2020-06-18] MEDS: Folic Acid 1 MG TAB PO SCH (09:45)
[2020-06-18] MEDS: Heparin 5,000 UNITS/ML VIAL SC SCH (09:45)
[2020-06-18 12:02] VITALS: BP 127/67; TEMP 97.7
== END 2020-06-18 14:44 | disposition home health service (06) | DRG 884 ==
LOC: 2SE 23:04 → OBSVTOIN 06-12 14:36
PROVIDERS: ADMIT Internal Medicine; ATTEND Internal Medicine
DX: F03.90 Unspecified dementia, unspecified severity, without behavioral disturbance, psychotic disturbance, mood disturbance, and anxiety (principal); G93.41 Metabolic encephalopathy; N17.9 Acute kidney failure, unspecified; Z20.822 Contact with and (suspected) exposure to COVID-19; N30.00 Acute cystitis without hematuria; E87.1 Hypo-osmolality and hyponatremia; J44.1 Chronic obstructive pulmonary disease with (acute) exacerbation; J44.0 Chronic obstructive pulmonary disease with (acute) lower respiratory infection; I10 Essential (primary) hypertension; E78.5 Hyperlipidemia, unspecified; I25.10 Atherosclerotic heart disease of native coronary artery without angina pectoris; I73.9 Peripheral vascular disease, unspecified; E86.1 Hypovolemia; D52.9 Folate deficiency anemia, unspecified; B96.20 Unspecified Escherichia coli [E. coli] as the cause of diseases classified elsewhere; B96.1 Klebsiella pneumoniae [K. pneumoniae] as the cause of diseases classified elsewhere; T50.2X5A Adverse effect of carbonic-anhydrase inhibitors, benzothiadiazides and other diuretics, initial encounter; J20.9 Acute bronchitis, unspecified; F17.200 Nicotine dependence, unspecified, uncomplicated; I69.354 Hemiplegia and hemiparesis following cerebral infarction affecting left non-dominant side; Z88.5 Allergy status to narcotic agent; Z91.040 Latex allergy status; Z79.01 Long term (current) use of anticoagulants; Z79.899 Other long term (current) drug therapy; Z85.528 Personal history of other malignant neoplasm of kidney; Z90.49 Acquired absence of other specified parts of digestive tract; Z95.1 Presence of aortocoronary bypass graft; Z90.5 Acquired absence of kidney
CPT/HCPCS: 36415; 70450; 71045; 80048; 82570; 82607; 82728; 82746; 82805; 83930; 83935; 84156; 84300; 84443; 84540; 85025; 85027; 87635; 94640; 94660; 96374; G0378; J0696; J1644; J3490; J7512; J7620; U0003; U0005

== ENCOUNTER 2023-11-27 10:43 | Inpatient (IN) | payer OTHER ==
[2023-11-27 11:36] LABS: #Basophils 0.03 10x3/uL (0.0-0.2); %Basophils 0.4 % (0.0-1.0); %Eosinophils 2.4 % (0.0-10.0); %Lymphocytes 28.8 % (21.0-51.0); %Monocytes 5.9 % (0.0-10.0); %Neutrophils 62.2 % (42.0-75.0); Hematocrit 15.8 % (36.0-47.0); Hemoglobin 4.8 g/dL (12.0-16.0); Mean Corpuscular HGB CONC 30.4 g/dL (32.0-36.0); Mean Corpuscular Hemoglobin 24.1 pg (27.0-31.0); Mean Corpuscular Volume 79.4 fL (78.0-98.0); Mean Platelet Volume 9.6 fL (7.4-10.4); Platelet Count 209 10x3/uL (130-400); RBC Distribution Width 15.4 % (11.5-14.5); Red Blood Cell (RBC) Count 1.99 mill/uL (4.20-5.40)
[2023-11-27 11:49] LABS: Anion Gap 11 mmol/L (10-20); BUN (Urea Nitrogen) 25 mg/dL (9.8-20.1); Calc. Creatinine Clearance 0 mL/min (70-130); Calcium 8.5 mg/dL (7.8-10.44); Carbon Dioxide 23 mmol/L (23-31); Chloride 112 mmol/L (98-107); Estimated GFR 53; Glucose 88 mg/dL (83-110); Potassium 4.2 mmol/L (3.5-5.1); Sodium 142 mmol/L (136-145)
[2023-11-27] MEDS ORDERED: Ipratropium/Albuterol 3 ML NEB ONE (11:50)
[2023-11-27 11:54] LABS: INR-International Normal Ratio 1.3; PTT 33.2 sec (22.9-36.1); Prothrombin Time 16.5 sec (12.0-14.7)
[2023-11-27 12:04] LABS: Troponin I 0.245 ng/mL (< 0.028)
[2023-11-27] MEDS ORDERED: Furosemide 40 MG (4 mL) VIAL ONE (12:21)
[2023-11-27] MEDS ORDERED: Nitroglycerin 0.4 MG TAB (25 Tab Bottle) SL PRN (14:47)
[2023-11-27] MEDS ORDERED: Ondansetron PF 4 MG/2 ML Vial IVP PRN (14:48)
[2023-11-27] MEDS ORDERED: Calcium Carbonate 500 MG ChewTAB PO PRN (14:48)
[2023-11-27] MEDS ORDERED: Ondansetron ODT 4 MG TAB PO PRN (14:48)
[2023-11-27] MEDS ORDERED: Ipratropium/Albuterol 3 ML NEB NEB PRN (14:51)
[2023-11-27] MEDS ORDERED: Acetaminophen 325 MG TAB ONE (16:09)
[2023-11-27] MEDS: Acetaminophen 325 MG TAB PO PRN (16:11)
[2023-11-27] MEDS: Ipratropium/Albuterol 3 ML NEB NEB SCH (18:16)
[2023-11-27] MEDS: hydrALAZINE 25 MG TAB PO PRN (18:42)
[2023-11-27] MEDS ORDERED: Amlodipine 10 MG TAB PO SCH (19:15)
[2023-11-27 19:48] LABS: Hematocrit 29.9 % (36.0-47.0); Hemoglobin 9.6 g/dL (12.0-16.0)
[2023-11-27 20:10] LABS: Anion Gap 15 mmol/L (10-20); BUN (Urea Nitrogen) 25 mg/dL (9.8-20.1); Calc. Creatinine Clearance 0 mL/min (70-130); Carbon Dioxide 25 mmol/L (23-31); Chloride 104 mmol/L (98-107); Estimated GFR 43; Glucose 102 mg/dL (83-110); Magnesium 1.7 mg/dL (1.6-2.6); Phosphorus 3.6 mg/dL (2.3-4.7); Potassium 3.8 mmol/L (3.5-5.1); Sodium 140 mmol/L (136-145)
[2023-11-27 21:20] LABS: Troponin I 0.399 ng/mL (< 0.028)
[2023-11-27] MEDS: Multivit, Therapeutic 1 TAB PO SCH (21:23)
[2023-11-27] MEDS: Folic Acid 1 MG TAB PO SCH (21:23)
[2023-11-27] MEDS: Cyanocobalamin (Vitamin B-12) 1,000 MCG TAB PO SCH (21:23)
[2023-11-27] MEDS: Amlodipine 5 MG TAB PO SCH (21:23)
[2023-11-27] MEDS: Lisinopril 5 MG TAB PO SCH (21:23)
[2023-11-27] MEDS: Pantoprazole 40 MG VIAL IVP SCH (21:24)
[2023-11-27] MEDS: hydrALAZINE 20 MG/ML VIAL SLOW IVP PRN (23:16)
[2023-11-28] MEDS: Lorazepam 0.5 MG TAB PO SCH (03:37)
[2023-11-28 06:33] LABS: %Monocytes 7.4 % (0.0-10.0); %Neutrophils 69.9 % (42.0-75.0); Hematocrit 29.1 % (36.0-47.0); Hemoglobin 9.4 g/dL (12.0-16.0); Mean Corpuscular HGB CONC 32.3 g/dL (32.0-36.0); Mean Corpuscular Hemoglobin 25.7 pg (27.0-31.0); Mean Corpuscular Volume 79.5 fL (78.0-98.0); Mean Platelet Volume 9.3 fL (7.4-10.4); Platelet Count 206 10x3/uL (130-400); RBC Distribution Width 15.7 % (11.5-14.5); Red Blood Cell (RBC) Count 3.66 mill/uL (4.20-5.40)
[2023-11-28 06:34] LABS: #Basophils 0.04 10x3/uL (0.0-0.2); %Basophils 0.4 % (0.0-1.0); %Eosinophils 2.1 % (0.0-10.0)
[2023-11-28 06:43] LABS: ALT (SGPT) 28 U/L (8-55); AST (SGOT) 45 U/L (5-34); Alkaline Phosphatase 83 U/L (40-110); Anion Gap 15 mmol/L (10-20); BUN (Urea Nitrogen) 22 mg/dL (9.8-20.1); Bilirubin, Total 0.8 mg/dL (0.2-1.2); Calc. Creatinine Clearance 32 mL/min (70-130); Calcium 8.6 mg/dL (7.8-10.44); Carbon Dioxide 23 mmol/L (23-31); Chloride 105 mmol/L (98-107); Estimated GFR 45; Glucose 89 mg/dL (83-110); Magnesium 1.7 mg/dL (1.6-2.6); Potassium 3.6 mmol/L (3.5-5.1); Sodium 139 mmol/L (136-145)
[2023-11-28 06:49] LABS: Troponin I 0.448 ng/mL (< 0.028)
[2023-11-28] MEDS ORDERED: Amlodipine 10 MG TAB PO SCH (09:00)
[2023-11-28] MEDS ORDERED: Etomidate 40 MG (20 mL) VIAL ONE (10:36)
[2023-11-28] MEDS ORDERED: Lidocaine 2% PF 100 mg/5 ml Syringe ONE (10:36)
[2023-11-28] MEDS ORDERED: PROPOFOL 20 ML ONE (10:36)
[2023-11-28] MEDS ORDERED: Ondansetron HCl/PF 4 MG/2 ML Vial IVP PRN (10:54)
[2023-11-28] MEDS: GoLYTELY 4,000 ml Bottle PO SCH (13:47)
[2023-11-28] MEDS: Fleet Saline Enema 133 ML BOT PR SCH (21:50)
[2023-11-28 21:52] LABS: #Basophils 0.05 10x3/uL (0.0-0.2); %Basophils 0.4 % (0.0-1.0); %Eosinophils 3.9 % (0.0-10.0); %Lymphocytes 24.3 % (21.0-51.0); %Monocytes 4.4 % (0.0-10.0); %Neutrophils 66.7 % (42.0-75.0); Hematocrit 34.3 % (36.0-47.0); Hemoglobin 11.1 g/dL (12.0-16.0); Mean Corpuscular HGB CONC 32.4 g/dL (32.0-36.0); Mean Corpuscular Hemoglobin 25.8 pg (27.0-31.0); Mean Corpuscular Volume 79.6 fL (78.0-98.0); Mean Platelet Volume 8.9 fL (7.4-10.4); Platelet Count 292 10x3/uL (130-400); RBC Distribution Width 15.9 % (11.5-14.5); Red Blood Cell (RBC) Count 4.31 mill/uL (4.20-5.40)
[2023-11-28] MEDS: Amiodarone 150 MG, Admixture Fee 1 EACH in Dextrose 5% in Water 100 ML IVPB SCH (22:19)
[2023-11-28] MEDS: Amiodarone 450 MG in Dextrose 5% in Water 250 ML IVPB SCH (22:20)
[2023-11-29] MEDS: Sodium Chloride 0.9% 1,000 ML IV SCH (06:34)
[2023-11-29 08:30] LABS: #Basophils 0.03 10x3/uL (0.0-0.2); %Basophils 0.3 % (0.0-1.0); %Eosinophils 4.2 % (0.0-10.0); %Lymphocytes 25.7 % (21.0-51.0); %Neutrophils 63.5 % (42.0-75.0); Hematocrit 26.7 % (36.0-47.0); Hemoglobin 8.6 g/dL (12.0-16.0); Mean Corpuscular HGB CONC 32.2 g/dL (32.0-36.0); Mean Corpuscular Hemoglobin 25.4 pg (27.0-31.0); Mean Platelet Volume 9.7 fL (7.4-10.4); Platelet Count 212 10x3/uL (130-400); RBC Distribution Width 15.9 % (11.5-14.5); Red Blood Cell (RBC) Count 3.38 mill/uL (4.20-5.40)
[2023-11-29] MEDS ORDERED: Lidocaine 2% PF 5 ML VIAL ONE (08:31)
[2023-11-29] MEDS ORDERED: PROPOFOL 40 ML ONE (08:31)
[2023-11-29 09:01] LABS: ALT (SGPT) 26 U/L (8-55); AST (SGOT) 46 U/L (5-34); Albumin 2.7 g/dL (3.4-4.8); Alkaline Phosphatase 86 U/L (40-110); Anion Gap 14 mmol/L (10-20); BUN (Urea Nitrogen) 20 mg/dL (9.8-20.1); Bilirubin, Total 0.8 mg/dL (0.2-1.2); Calc. Creatinine Clearance 27 mL/min (70-130); Carbon Dioxide 23 mmol/L (23-31); Chloride 104 mmol/L (98-107); Estimated GFR 37; Globulin 3.6 g/dL (2.4-3.5); Glucose 97 mg/dL (83-110); Potassium 3.4 mmol/L (3.5-5.1); Protein, Total 6.3 g/dL (5.8-8.1); Sodium 138 mmol/L (136-145)
[2023-11-29 13:47] VITALS: BMI 23.8
[2023-11-29] MEDS ORDERED: PHENYLEPHRINE-NS 100 MCG/ML 10 ML SYRINGE ONE (14:18)
[2023-11-30] MEDS ORDERED: Folic Acid 1 MG TAB PO SCH (09:00)
[2023-11-30] MEDS: Losartan 25 MG TAB PO SCH (09:57)
[2023-11-30] MEDS: Nicotine 14 MG PATCH TD SCH (09:58)
[2023-11-30 10:24] LABS: #Basophils 0.04 10x3/uL (0.0-0.2); %Basophils 0.5 % (0.0-1.0); %Eosinophils 5.2 % (0.0-10.0); %Lymphocytes 25.2 % (21.0-51.0); %Monocytes 6.8 % (0.0-10.0); %Neutrophils 61.9 % (42.0-75.0); Hematocrit 29.1 % (36.0-47.0); Hemoglobin 8.8 g/dL (12.0-16.0); Mean Corpuscular HGB CONC 30.2 g/dL (32.0-36.0); Mean Corpuscular Hemoglobin 25.9 pg (27.0-31.0); Mean Corpuscular Volume 85.6 fL (78.0-98.0); Mean Platelet Volume 9.3 fL (7.4-10.4); Platelet Count 199 10x3/uL (130-400); RBC Distribution Width 16.5 % (11.5-14.5)
[2023-11-30 10:37] LABS: Anion Gap 13 mmol/L (10-20); BUN (Urea Nitrogen) 15 mg/dL (9.8-20.1); Calc. Creatinine Clearance 38 mL/min (70-130); Calcium 8.5 mg/dL (7.8-10.44); Carbon Dioxide 18 mmol/L (23-31); Chloride 110 mmol/L (98-107); Estimated GFR 55; Glucose 98 mg/dL (83-110); Potassium 3.9 mmol/L (3.5-5.1); Sodium 137 mmol/L (136-145)
[2023-11-30] MEDS: Sodium Ferric Gluconate 250 MG in Sodium Chloride 0.9% 250 ML 250 ML IVPB SCH ×2 (19:05→21:14)
[2023-11-30] MEDS ORDERED: Pantoprazole DR 40 MG TAB PO SCH (21:00)
[2023-12-01] MEDS: Pantoprazole DR 40 MG TAB PO SCH (08:21)
[2023-12-01 11:49] VITALS: BP 151/64; TEMP 98.2
== END 2023-12-01 13:15 | disposition home or self-care (01) | DRG 393 ==
LOC: ERS 10:43 → ERHOLD 13:17 → IMCU/EMU 17:31 → MSONC 11-30 18:17
PROVIDERS: ADMIT Internal Medicine; ATTEND Family Medicine
PROC: 30233N1 Transfusion of Nonautologous Red Blood Cells into Peripheral Vein, Percutaneous Approach (ICD-10-PCS; 2023-11-27)
PROC: 0DJ08ZZ Inspection of Upper Intestinal Tract, Via Natural or Artificial Opening Endoscopic (ICD-10-PCS; principal; 2023-11-28)
PROC: 0DBK8ZZ Excision of Ascending Colon, Via Natural or Artificial Opening Endoscopic (ICD-10-PCS; 2023-11-29)
PROC: 0DBL8ZZ Excision of Transverse Colon, Via Natural or Artificial Opening Endoscopic (ICD-10-PCS; 2023-11-29)
PROC: 0DBM8ZZ Excision of Descending Colon, Via Natural or Artificial Opening Endoscopic (ICD-10-PCS; 2023-11-29)
PROC: 0DBH8ZZ Excision of Cecum, Via Natural or Artificial Opening Endoscopic (ICD-10-PCS; 2023-11-29)
PROC: 0DBN8ZX Excision of Sigmoid Colon, Via Natural or Artificial Opening Endoscopic, Diagnostic (ICD-10-PCS; 2023-11-29)
DX: K63.3 Ulcer of intestine (principal); I21.A1 Myocardial infarction type 2; D62 Acute posthemorrhagic anemia; N17.9 Acute kidney failure, unspecified; I13.0 Hypertensive heart and chronic kidney disease with heart failure and stage 1 through stage 4 chronic kidney disease, or unspecified chronic kidney disease; J44.1 Chronic obstructive pulmonary disease with (acute) exacerbation; K55.9 Vascular disorder of intestine, unspecified; K63.5 Polyp of colon; N18.30 Chronic kidney disease, stage 3 unspecified; E78.5 Hyperlipidemia, unspecified; I73.9 Peripheral vascular disease, unspecified; I48.91 Unspecified atrial fibrillation; I25.2 Old myocardial infarction; Z90.49 Acquired absence of other specified parts of digestive tract; Z98.890 Other specified postprocedural states; I50.9 Heart failure, unspecified; I25.10 Atherosclerotic heart disease of native coronary artery without angina pectoris; Z91.040 Latex allergy status; Z88.5 Allergy status to narcotic agent; K29.70 Gastritis, unspecified, without bleeding
CPT/HCPCS: 36415; 36430; 71045; 80048; 80053; 82728; 83735; 83880; 84100; 84484; 85025; 85046; 86850; 86900; 86901; 88305; 93005; 93010; 93306; 94640; 94760; 96374; J0282; J0360; J1940; J2001; J2470; J2704; J2916; J7030; J7050; J7070; J7620; P9016

== ENCOUNTER 2024-01-27 21:38 | Inpatient (IN) | payer OTHER ==
[2024-01-28] MEDS ORDERED: Acetaminophen 325 MG TAB PO PRN (00:50)
[2024-01-28 01:19] LABS: #Basophils Less than 0.03 10x3/uL (0.0-0.2); %Basophils 0.3 % (0.0-1.0); %Eosinophils 0.4 % (0.0-10.0); %Lymphocytes 17.1 % (21.0-51.0); %Monocytes 5.3 % (0.0-10.0); %Neutrophils 76.6 % (42.0-75.0); Hematocrit 25.7 % (36.0-47.0); Hematocrit 26.7 % (36.0-47.0); Hemoglobin 7.8 g/dL (12.0-16.0); Mean Corpuscular HGB CONC 30.4 g/dL (32.0-36.0); Mean Corpuscular Hemoglobin 25.7 pg (27.0-31.0); Mean Corpuscular Volume 84.8 fL (78.0-98.0); Mean Platelet Volume 8.7 fL (7.4-10.4); Platelet Count 188 10x3/uL (130-400); Red Blood Cell (RBC) Count 3.03 mill/uL (4.20-5.40)
[2024-01-28] MEDS ORDERED: Nitroglycerin 0.4 MG TAB (25 Tab Bottle) SL PRN (01:28)
[2024-01-28 01:30] VITALS: BMI 22.9
[2024-01-28 01:32] LABS: INR-International Normal Ratio 1.2; PTT 34.6 sec (22.9-36.1); Prothrombin Time 15.2 sec (12.0-14.7)
[2024-01-28 01:34] LABS: ALT (SGPT) 18 U/L (8-55); AST (SGOT) 28 U/L (5-34); Alkaline Phosphatase 91 U/L (40-110); Anion Gap 14 mmol/L (10-20); BUN (Urea Nitrogen) 16 mg/dL (9.8-20.1); Bilirubin, Total 0.3 mg/dL (0.2-1.2); Calc. Creatinine Clearance 34 mL/min (70-130); Calcium 8.5 mg/dL (7.8-10.44); Carbon Dioxide 18 mmol/L (23-31); Chloride 108 mmol/L (98-107); Estimated GFR 45; Globulin 3.9 g/dL (2.4-3.5); Glucose 93 mg/dL (83-110); Potassium 3.9 mmol/L (3.5-5.1); Protein, Total 6.9 g/dL (5.8-8.1); Sodium 136 mmol/L (136-145)
[2024-01-28] MEDS ORDERED: Ipratropium/Albuterol 3 ML NEB NEB PRN (01:46)
[2024-01-28] MEDS: Sodium Chloride 0.9% 1,000 ML IV SCH ×2 (02:33→02:34)
[2024-01-28 05:24] LABS: Hematocrit 26.4 % (36.0-47.0)
[2024-01-28] MEDS: Pantoprazole 40 MG VIAL IVP SCH (08:39)
[2024-01-28] MEDS: Atorvastatin Calcium 40 MG TAB PO SCH (08:39)
[2024-01-28 11:21] LABS: Hematocrit 27.5 % (36.0-47.0)
[2024-01-28 17:05] LABS: Bacteria/HPF 2+ HPF (None Seen); Bilirubin Negative (Negative); Blood, Urine 1+ (Negative); CAUTI Indications for Culture Alt mental st,lethar; Clarity Turbid (Clear); Glucose, Urine (Dipstick) Normal (Negative); Ketone, Urine Negative (Negative); Leukocyte 500 Leu/uL (Negative); Nitrite 1+ (Negative); Protein, Urine (Dipstick) 70 mg/dL (Neg-Trace); Specific Gravity, Urine 1.034 (1.002-1.036); Squamous Epithelial 0-3 HPF (0-3); Urobilinogen Normal mg/dL (Less than 2); WBC/HPF Greater than 50 HPF (0-3); pH, Urine 5.5 (5.0-9.0)
[2024-01-28 19:34] LABS: Hematocrit 25.8 % (36.0-47.0)
[2024-01-28] MEDS: cefTRIAXone\\ROCEPHIN 1 GM in Sodium Chloride 0.9% 100 ML IVPB SCH (21:08)
[2024-01-29 05:35] LABS: #Basophils 0.03 10x3/uL (0.0-0.2); %Basophils 0.6 % (0.0-1.0); %Eosinophils 6.5 % (0.0-10.0); %Lymphocytes 27.7 % (21.0-51.0); %Monocytes 7.4 % (0.0-10.0); %Neutrophils 57.6 % (42.0-75.0); Hematocrit 22.2 % (36.0-47.0); Hemoglobin 6.8 g/dL (12.0-16.0); Mean Corpuscular HGB CONC 30.6 g/dL (32.0-36.0); Mean Corpuscular Hemoglobin 26.1 pg (27.0-31.0); Mean Corpuscular Volume 85.1 fL (78.0-98.0); Mean Platelet Volume 9.2 fL (7.4-10.4); Platelet Count 181 10x3/uL (130-400); Red Blood Cell (RBC) Count 2.61 mill/uL (4.20-5.40)
[2024-01-29 05:54] LABS: ALT (SGPT) 18 U/L (8-55); AST (SGOT) 37 U/L (5-34); Albumin 2.6 g/dL (3.4-4.8); Alkaline Phosphatase 79 U/L (40-110); Anion Gap 12 mmol/L (10-20); BUN (Urea Nitrogen) 13 mg/dL (9.8-20.1); Bilirubin, Total 0.1 mg/dL (0.2-1.2); Calc. Creatinine Clearance 37 mL/min (70-130); Calcium 7.8 mg/dL (7.8-10.44); Carbon Dioxide 17 mmol/L (23-31); Chloride 113 mmol/L (98-107); Estimated GFR 49; Globulin 3.5 g/dL (2.4-3.5); Glucose 108 mg/dL (83-110); Potassium 3.7 mmol/L (3.5-5.1); Protein, Total 6.1 g/dL (5.8-8.1); Sodium 138 mmol/L (136-145)
[2024-01-29] MEDS: Lisinopril 10 MG TAB PO SCH (09:37)
[2024-01-29] MEDS: Pantoprazole 40 MG VIAL IVP SCH (09:37)
[2024-01-29] MEDS: Metoprolol Tartrate 25 MG TAB PO SCH (09:37)
[2024-01-29 19:38] LABS: Hematocrit 32.2 % (36.0-47.0); Hemoglobin 9.7 g/dL (12.0-16.0)
[2024-01-30] MEDS: hydrALAZINE 20 MG/ML VIAL SLOW IVP SCH (01:58)
[2024-01-30 05:16] LABS: #Basophils 0.03 10x3/uL (0.0-0.2); %Basophils 0.4 % (0.0-1.0); %Lymphocytes 30.1 % (21.0-51.0); %Monocytes 8.8 % (0.0-10.0); %Neutrophils 54.3 % (42.0-75.0); Hematocrit 29.9 % (36.0-47.0); Hemoglobin 9.5 g/dL (12.0-16.0); Mean Corpuscular HGB CONC 31.8 g/dL (32.0-36.0); Mean Corpuscular Hemoglobin 26.2 pg (27.0-31.0); Mean Corpuscular Volume 82.6 fL (78.0-98.0); Platelet Count 196 10x3/uL (130-400); RBC Distribution Width 16.7 % (11.5-14.5); Red Blood Cell (RBC) Count 3.62 mill/uL (4.20-5.40)
[2024-01-30 05:27] LABS: Anion Gap 14 mmol/L (10-20); BUN (Urea Nitrogen) 14 mg/dL (9.8-20.1); Calc. Creatinine Clearance 40 mL/min (70-130); Calcium 8.2 mg/dL (7.8-10.44); Carbon Dioxide 18 mmol/L (23-31); Chloride 108 mmol/L (98-107); Estimated GFR 55; Glucose 91 mg/dL (83-110); Potassium 3.7 mmol/L (3.5-5.1); Sodium 136 mmol/L (136-145)
[2024-01-30] MEDS ORDERED: Iopamidol-370 76% 500 ML MDV (1 ML CHARGE) ONE (08:31)
[2024-01-30] MEDS: hydrALAZINE 20 MG/ML VIAL SLOW IVP PRN (18:29)
[2024-01-31 05:57] LABS: Hematocrit 30.5 % (36.0-47.0); Hemoglobin 9.5 g/dL (12.0-16.0); Mean Corpuscular HGB CONC 31.1 g/dL (32.0-36.0); Mean Corpuscular Hemoglobin 26.4 pg (27.0-31.0); Mean Corpuscular Volume 84.7 fL (78.0-98.0); Mean Platelet Volume 8.6 fL (7.4-10.4); Platelet Count 189 10x3/uL (130-400); RBC Distribution Width 16.6 % (11.5-14.5)
[2024-01-31 05:59] LABS: #Basophils 0.05 10x3/uL (0.0-0.2); %Basophils 0.7 % (0.0-1.0); %Eosinophils 6.2 % (0.0-10.0); %Lymphocytes 33.5 % (21.0-51.0); %Monocytes 8.6 % (0.0-10.0); %Neutrophils 50.7 % (42.0-75.0); Hematocrit 31.3 % (36.0-47.0); Hemoglobin 9.8 g/dL (12.0-16.0); Mean Corpuscular HGB CONC 31.3 g/dL (32.0-36.0); Mean Corpuscular Hemoglobin 26.6 pg (27.0-31.0); Mean Corpuscular Volume 85.1 fL (78.0-98.0); Mean Platelet Volume 8.9 fL (7.4-10.4); Platelet Count 200 10x3/uL (130-400); RBC Distribution Width 16.8 % (11.5-14.5); Red Blood Cell (RBC) Count 3.68 mill/uL (4.20-5.40)
[2024-01-31 06:16] LABS: Anion Gap 14 mmol/L (10-20); BUN (Urea Nitrogen) 16 mg/dL (9.8-20.1); Calc. Creatinine Clearance 37 mL/min (70-130); Calcium 8.6 mg/dL (7.8-10.44); Carbon Dioxide 17 mmol/L (23-31); Chloride 109 mmol/L (98-107); Estimated GFR 49; Glucose 85 mg/dL (83-110); Iron 28 ug/dL (50-170); Iron Binding Capacity, Total 314 mcg/dL (265-497); Potassium 3.8 mmol/L (3.5-5.1); Sodium 136 mmol/L (136-145)
[2024-01-31 06:17] LABS: Iron 30 ug/dL (50-170); Iron Binding Capacity, Total 318 mcg/dL (265-497)
[2024-01-31 06:55] LABS: Ferritin 40.13 ng/mL (10-291)
[2024-01-31 08:26] VITALS: TEMP 98.4
[2024-01-31] MEDS: FLU (Fluad Triv) TS24-25 (65UP)/MF59C/PF 45 MCG/0.5 ML Syringe IM ONE (08:54)
[2024-01-31] MEDS: Sodium Ferric Gluconate 250 MG in Sodium Chloride 0.9% 250 ML 250 ML IVPB SCH (09:31)
[2024-01-31 11:44] VITALS: BP 156/69
[2024-01-31 12:14] LABS: Adenovirus F 40-41 Not Detected (Not Detected); Astrovirus Not Detected (Not Detected); C. difficile toxin A+B Not Detected (Not Detected); Campylobacter by PCR Not Detected (Not Detected); Cryptosporidium Not Detected (Not Detected); Cyclospora cayetanensis Not Detected (Not Detected); Entamoeba histolytica Not Detected (Not Detected); Enteroaggregative E. coli Not Detected (Not Detected); Enteropathogenic E. coli Not Detected (Not Detected); Enterotoxigenic E. coli Not Detected (Not Detected); Giardia lamblia Not Detected (Not Detected); Norovirus GI-GII Not Detected (Not Detected); Plesiomonas shigelloides Not Detected (Not Detected); Rotavirus A Not Detected (Not Detected); Salmonella Not Detected (Not Detected); Sapovirus Not Detected (Not Detected); Shiga-toxin-producing E coli Not Detected (Not Detected); Shigella/Enteroinvasive E coli Not Detected (Not Detected); Vibrio Not Detected (Not Detected); Vibrio cholerae Not Detected (Not Detected); Yersinia enterocolitica Not Detected (Not Detected)
== END 2024-01-31 17:22 | disposition home or self-care (01) | DRG 377 ==
LOC: T4-A 01-28 00:29 → OBSVTOIN 01-29 19:18
PROVIDERS: ADMIT Internal Medicine; ATTEND Student in an Organized Health Care Education/Training Program
PROC: 30233N1 Transfusion of Nonautologous Red Blood Cells into Peripheral Vein, Percutaneous Approach (ICD-10-PCS; principal; 2024-01-29)
DX: K92.1 Melena (principal); G93.41 Metabolic encephalopathy; N17.9 Acute kidney failure, unspecified; D50.9 Iron deficiency anemia, unspecified; N30.90 Cystitis, unspecified without hematuria; I48.0 Paroxysmal atrial fibrillation; I10 Essential (primary) hypertension; E78.5 Hyperlipidemia, unspecified; I25.10 Atherosclerotic heart disease of native coronary artery without angina pectoris; J44.9 Chronic obstructive pulmonary disease, unspecified; Z79.899 Other long term (current) drug therapy; Z95.1 Presence of aortocoronary bypass graft; D35.00 Benign neoplasm of unspecified adrenal gland
CPT/HCPCS: 36415; 36430; 74174; 80048; 80053; 81001; 82607; 82728; 83540; 83550; 85025; 85610; 85730; 86850; 86900; 86901; 87324; 87449; 87505; 87507; 90653; 96374; 96375; 96376; G0378; J0360; J0696; J2470; J2916; J7030; J7050; P9016; Q9967